=== PATIENT | female | born 1970 | race Caucasian/White ===

== ENCOUNTER 2023-10-14 08:01 | Emergency (ER) | payer OTHER, SELFPAY ==
[2023-10-14 08:02] VITALS: BP 144/78
--- NOTE | 2023-10-14 08:13 | ED.SKININJ ---
HPI-Injury
General
Chief Complaint: Bite
Source: patient
Time Seen by Provider: 10/14/23 08:13
History of Present Illness-Injury
Is this injury a work related problem?: No
Is pt an associate of [facility]/[place]?: No
Initial Injury comments:
She was bitten by her pet parrot. Bleeding won't stop, so she came here. Some soft tissue pain, but no bony pain. Denies any other injury.
Past History
Past History
ED Past Medical History: HTN and Other (Lumbar disc disease)
ED Past Surgical History: None
Patient has exhibited threatening behavior?: No
Social History
Tobacco: Non-smoker
Alcohol: None
Drug: None
Personal:
Living: with family
Employment: Employed
Family History
Family History: Hypertension; Negative Early CAD
Phy Exam
General Physical Exam
General Presentation: well appearing and no apparent distress
Neurological Exam
Neurological Exam: alert and no motor deficits
Musculoskeletal Exam
Musculoskeletal Exam: full ROM
Comment
comment:
Minimal STS at prox phalanx L 2nd digit but no bony tenderness along w/ subcentimeter laceration w/ min ongoing bleeding; very good AROM
Course
Orders/Labs/Results
Orders:
Orders
10/14/23 08:34
Tetanus/Diphth/Acelpertussis [Adacel] 0.5 ml IM .ONCE ONE
Vital Signs
Initial and Last Documented VS:
Initial Vital Signs
Temp Pulse Resp BP Pulse Ox
98.1 F 78 16 144/78 98
10/14/23 08:02 10/14/23 08:02 10/14/23 08:02 10/14/23 08:02 10/14/23 08:02
Last Documented Vital Signs
Temp Pulse Resp BP Pulse Ox
98.1 F 78 16 144/78 98
10/14/23 08:02 10/14/23 08:02 10/14/23 08:02 10/14/23 08:02 10/14/23 08:02
Procedures
Laceration Closure
Left Anterior Second Finger:
Status of Wound: clean
Size of Wound in cm: 1
Description of Wound Edges: sharp
Preparation: cleaned with SurClens
Revision/Debridement: routine- no revision
Wound exploration: explored to base- no FB
Type of Closure: single layer closure
Skin Closure Material: 4-0 nylon
Number of sutures: 1
MDM/Problems Addressed
Differential Diagnosis Includes:
Superficial laceration; deep lac; FB
MDM/Problems Addressed:
Laceration
Chronic conditions affecting care:
None; uncertain if tetanus status UTD
Acute Exacerbation and/or Progression of Chronic Illness:
none; this is an acute problem
*Critical Care Note
Total Time (30-74mins, 75-104mins- exclusive of procedures): Not Applicable
Comment
Comment:
Will give abx to help prevent infx
Update Note
Update Note:
Tet/clinda rx'd (?penicillin allergy)
ED Attending Note
-
Portions of this chart may have been created with voice recognition software.� Occasional wrong word or��sound alike� substitutions may have occurred due to the inherent limitations of voice recognition software.
Discharge Plan
Departure
Patient Disposition: Home (Routine Discharge)
Date of Disposition: 10/14/23
Time of Disposition: 08:33
Patient with high blood pressure during this ER visit?: Yes
Discharge Problem:
Bitten by parrot, initial encounter, Laceration of finger
Instructions: Animal Bites (DC), Laceration Repair With Stitches (DC)
Prescriptions:
New
clindamycin HCl 150 mg capsule
150 mg PO TID Qty: 9 0RF
No Action
ibuprofen [Advil] 200 MG tablet
1 - 3 tab PO Q6H PRN (Reason: back pain)
ondansetron 4 MG tablet,disintegrating
4 mg PO TIDPRN PRN (Reason: nausea/vomiting) Qty: 10 0RF
Referrals:
Dawood Vazquez, DO [Family Provider] -
Activity Restrictions/Additional Instructions:
Have stitches removed in about 1 week by your doctor. Return here if worse.
Interventions
Interventions:
*Risk Screen - Suicide Last Done: 10/14/23 08:02
*General Assessment Last Done: 10/14/23 08:02
*Neglect/Abuse Screening Last Done: 10/14/23 08:02
ED- Fall Risk Assessment Last Done: 10/14/23 08:30
*ED COVID-19 Vaccine History Last Done: 10/14/23 08:30
ED-Skin Assessment Last Done: 10/14/23 08:30
Discharge Date and Time
Print Language: FRENCH
[2023-10-14] MEDS: ADACEL 0.5 ML IM (08:41)
[2023-10-14 08:55] VITALS: BP 138/85
--- NOTE | 2023-10-14 08:55 | EDRN ---
Reviewed discharge instructions with patient. Verbalized understanding. Ambulated with steady gait to the lobby.
== END 2023-10-14 08:55 | disposition home or self-care (01) ==
LOC: EMR 08:01
PROVIDERS: EMERGENCY PHYSICIAN Emergency Medicine; FAMILY PHYSICIAN Internal Medicine
DX: S61.211A Laceration without foreign body of left index finger without damage to nail, initial encounter (principal); W61.01XA Bitten by parrot, initial encounter; Z23 Encounter for immunization; I10 Essential (primary) hypertension
CPT/HCPCS: 99282; 90471; 12001; 90715